=== PATIENT | male | born 1950 | race Caucasian/White ===

== ENCOUNTER → 2016-07-18 | Outpatient (CLI) | payer MEDICARE, OTHER ==
[~2016-07-18] MED LIST: ASPIR 8181 MG PO; CHLORTHALIDONE25 MG PO; ELIQUIS 5 MG TAB5 MG PO; ENALAPRIL MALEA20 MG PO; HYDROCODON-ACE1 EAC2 PO; ISOSORBIDE MONO60 MG PO; LIPITOR TAB 2020 MG PO; LOPRESSOR100 MG PO; MULTAQ 400 MG400 MG PO; NEURONTIN 400400 MG PO; NITROGLYCERIN0.4 MG SL; NORVASC 5 MG TAB5 MG PO; NOVOLOG100 UNIT/1 SQ; OMEPRAZOLE20 M1 PO; PANTOPRAZOLE SO40 MG PO; PEXEVA40 MG PO; PLAVIX 75 MG TA75 MG PO; SYNTHROID 50 M50 MCG PO; TRESIBA SQ; TRULICITY0.75 MG/0. SQ; VITAMIN B-121000 MC3 PO; VITAMIN D400 UNIT PO; ZYLOPRIM 100 M100 MG PO
== END ==
LOC: HEART CORB 09:05
DX: I50.33 Acute on chronic diastolic (congestive) heart failure (principal); R07.2 Precordial pain; I25.10 Atherosclerotic heart disease of native coronary artery without angina pectoris
CPT/HCPCS: 78452; 93306; A9502; J2785

== ENCOUNTER → 2016-08-08 | Outpatient (CLI) | payer MEDICARE, OTHER | LOC: CT 08:30 | DX: C91.10 Chronic lymphocytic leukemia of B-cell type not having achieved remission (principal); R59.0 Localized enlarged lymph nodes | CPT/HCPCS: 70490; 71250 ==

== ENCOUNTER 2016-08-17 11:48 | Emergency (ER) | payer MEDICARE, OTHER ==
[2016-12-19] MEDS ORDERED: CHLORTHALIDONE25 MG PO (20:23)
[2016-12-19] MEDS ORDERED: NORVASC 5 MG TAB5 MG PO (20:23)
[2016-12-19] MEDS ORDERED: NEURONTIN 400400 MG PO (20:23)
[2016-12-19] MEDS ORDERED: SYNTHROID 50 M50 MCG PO (20:24)
[2016-12-19] MEDS ORDERED: HYDROCODON-ACE1 EAC2 PO (20:24)
[2016-12-19] MEDS ORDERED: LOPRESSOR100 MG PO (20:25)
[2016-12-19] MEDS ORDERED: OMEPRAZOLE20 M1 PO (20:25)
[2016-12-19] MEDS ORDERED: PEXEVA40 MG PO (20:26)
[2016-12-19] MEDS ORDERED: VITAMIN B-121000 MC3 PO (20:26)
[2016-12-19] MEDS ORDERED: LIPITOR TAB 2020 MG PO (20:27)
[2016-12-19] MEDS ORDERED: VITAMIN D400 UNIT PO (20:27)
[2016-12-19] MEDS ORDERED: PLAVIX 75 MG TA75 MG PO (20:28)
[2016-12-19] MEDS ORDERED: ENALAPRIL MALEA20 MG PO (20:28)
[2016-12-19] MEDS ORDERED: ISOSORBIDE MONO60 MG PO (20:45)
[2016-12-19] MEDS ORDERED: NOVOLOG100 UNIT/1 SQ ×3 (20:46→20:47)
[2016-12-19] MEDS ORDERED: TRULICITY0.75 MG/0. SQ (20:48)
[2016-12-19] MEDS ORDERED: ZYLOPRIM 100 M100 MG PO (20:49)
[2016-12-19] MEDS ORDERED: NITROGLYCERIN0.4 MG SL (20:49)
[2016-12-19] MEDS ORDERED: TRESIBA SQ (20:51)
[2016-12-20] MEDS ORDERED: MULTAQ 400 MG400 MG PO (14:27)
[2016-12-20] MEDS ORDERED: PANTOPRAZOLE SO40 MG PO (14:33)
[2016-12-20] MEDS ORDERED: ELIQUIS 5 MG TAB5 MG PO (14:35)
[2016-12-20] MEDS ORDERED: ASPIR 8181 MG PO (14:36)
== END 2016-08-17 14:58 | disposition home or self-care (01) ==
LOC: ER1 11:48
DX: M51.36 Other intervertebral disc degeneration, lumbar region (principal); E11.9 Type 2 diabetes mellitus without complications; I12.9 Hypertensive chronic kidney disease with stage 1 through stage 4 chronic kidney disease, or unspecified chronic kidney disease; I25.10 Atherosclerotic heart disease of native coronary artery without angina pectoris; N18.9 Chronic kidney disease, unspecified; Z79.891 Long term (current) use of opiate analgesic
CPT/HCPCS: 72131; 99283